=== PATIENT | male | born 1970 | race African-American/Black ===

== ENCOUNTER 2018-11-05 15:02 | Inpatient (IN) | payer OTHER ==
[2018-11-05 15:37] VITALS: BMI 26.3
--- NOTE | 2018-11-05 19:31 | HP ---
COWS - Scale Resting Pulse: 0= [place] 80 or Below Sweatin= No chills or Flushing Restless Observation: 1= Difficult to Sit Still Pupil Size: 1= Pupils >than Normal Bone or Joint Aches: 1= Mild Discomfort Runny Nose/ Eye Tearin= Nasal Congestion GI Upset > 30mins: 1= Stomach Cramp Tremor Observation: 2= Slight Tremor Visible Yawning Observation: 0= None Anxiety or Irritability: 2=Irritable/Anxious Goose Flesh Skin: 3=Piloerection COWS Score: 12 CIWA Score Nausea/Vomitin-Mild Nausea/No Vomiting Muscle Tremors: 2 Anxiety: 1-Mildly Anxious Agitation: 1-Slight > Activity Paroxysmal Sweats: 1-Minimal Palms Moist Orientation: 1-Uncertain about Date Tacttile Disturbances: 0-None Auditory Disturbances: 1-Very Mild Visual Disturbances: 2-Mild Sensitivity Headache: 1-Very Mild CIWA-Ar Total Score: 11 - Admission Criteria OASAS Guidelines: Admission for Medically Managed Detox: Requires at least one of the followin. CIWA greater than 12 2. Seizures within the past 24 hours 3. Delirium tremens within the past 24 hours 4. Hallucinations within the past 24 hours 5. Acute intervention needed for co occurring medical disorder 6. Acute intervention needed for co occurring psychiatric disorder 7. Severe withdrawal that cannot be handled at a lower level of care (continued vomiting, continued diarrhea, abnormal vital signs) requiring intravenous medication and/or fluids 8. Patient presents the following: Acute intervention needed for co-occurring med or psych disorder Admission Criteria Met: Admission criteria met Admission ROS [facility] - [facility] Chief Complaint: im tired of using drugs Allergies/Adverse Reactions: Allergies Allergy/AdvReac Type Severity Reaction Status Date / Time diphenhydramine Allergy Mild Unverified 11/05/18 15:29 [From Benadryl] History of Present Illness: heroin use 20 years 1 year abstinence during incarceration denies ho otp denies tx history - Ebola screening Have you traveled outside of the country in the last 21 days: No (N) Have you had contact with anyone from an Ebola affected area: No Do you have a fever: No - Review of Systems Constitutional: Changes in sleep EENT: reports: Nose Congestion Respiratory: reports: No Symptoms reported Cardiac: reports: No Symptoms Reported GI: reports: Abdominal cramping : reports: No Symptoms Reported Musculoskeletal: reports: Muscle Pain Integumentary: reports: No Symptoms Reported Neuro: reports: Tremors Endocrine: reports: No Symptoms Reported Hematology: reports: No Symptoms Reported Psychiatric: reports: Anxious Patient History - Patient Medical History Hx Anemia: No Hx Asthma: No Hx Chronic Obstructive Pulmonary Disease (COPD): No Hx Cancer: No Hx Cardiac Disorders: No Hx Congestive Heart Failure: No Hx Hypertension: No Hx Hypercholesterolemia: No Hx Pacemaker: No HX Cerebrovascular Accident: No Hx Seizures: No Hx Dementia: No Hx Diabetes: No Hx Gastrointestinal Disorders: No Hx Liver Disease: No Hx Genitourinary Disorders: No Hx Sexually Transmitted Disorders: No Hx Renal Disease (ESRD): No Hx Human Immunodeficiency Virus (HIV): No (NEGATIVE IN OCTOBER 2011) Hx Hepatitis C: No Hx Depression: Yes (on xanax ) Hx Suicide Attempt: No Hx Bipolar Disorder: No Hx Schizophrenia: No - Patient Surgical History Past Surgical History: No Hx Neurologic Surgery: No Hx Cataract Extraction: No Hx Cardiac Surgery: No Hx Lung Surgery: No Hx Breast Surgery: No Hx Breast Biopsy: No Hx Abdominal Surgery: No Hx Appendectomy: No Hx Cholecystectomy: No Hx Genitourinary Surgery: No Hx Section: No Hx Orthopedic Surgery: No Anesthesia Reaction: No - PPD History Previous Implant?: Yes Documented Results: Negative w/o proof Date: 12/10/11 - Smoking Cessation Smoking history: Current every day smoker Have you smoked in the past 12 months: Yes Aproximately how many cigarettes per day: 12 Hx Chewing Tobacco Use: No Initiated information on smoking cessation: Yes 'Breaking Loose' booklet given: 11/05/18 - Substances abused Heroin Substance route: Inhalation Frequency: Daily Amount used: 8bags/day Date of last use: 11/05/18 Family Disease History - Family Disease History Family History: Denies Admission Physical Exam BHS - Vital Signs Vital Signs: Vital Signs - 24 hr 11/05/18 15:32 Temperature 97.5 F L Pulse Rate 64 Respiratory 14 Rate Blood Pressure 117/80 - Physical General Appearance: Yes: Irritable HEENTM: Yes: EOMI, Normocephalic Respiratory: Yes: Lungs Clear Neck: Yes: No masses,lesions,Nodules Breast: Yes: Breast Exam Deferred Cardiology: Yes: Regular Rhythm, Regular Rate, S1, S2 Abdominal: Yes: Normal Bowel Sounds Genitourinary: Yes: Within Normal Limits Back: Yes: Within Normal Limits, Normal Inspection Musculoskeletal: Yes: Within Normal Limits, full range of Motion Extremities: Yes: Within Normal Limits, Normal Capillary Refill Neurological: Yes: surgery scheduler II-XII NML intact, Motor Strength 5/5, Normal Mood/Affect Integumentary: Yes: Within Normal Limits - Diagnostic (1) Opiate dependence Current Visit: Yes Status: Acute (2) Opiate withdrawal Current Visit: Yes Status: Acute (3) Benzodiazepine dependence Current Visit: Yes Status: Chronic Cleared for Admission S - Detox or Rehab [facility] Level of Care: Medically Supervised Breathalyzer - Breathalyzer Breathalyzer: 0 Inpatient Rehab Admission - Rehab Decision to Admit Inpatient rehab admission?: No
[2018-11-05] MEDS ORDERED: ACETAMINOPHEN 325 MG TABLET (FP) PO PRN ×2 (20:02)
[2018-11-05] MEDS ORDERED: METHOCARBAMOL 500 MG TABLET PO PRN (20:02)
[2018-11-05] MEDS ORDERED: IBUPROFEN 400 MG TABLET (FP) PO PRN (20:02)
[2018-11-05] MEDS ORDERED: NICOTINE POLACRILEX 2 MG GUM BUC PRN (20:02)
[2018-11-05] MEDS ORDERED: MAG HYDROX/AL HYDROX/SIMETH 30 ML UNIT-DOSE CUP PO PRN (20:02)
[2018-11-05] MEDS ORDERED: MENTHOL/PHENOL 1 EACH UD MM PRN (20:02)
[2018-11-05] MEDS ORDERED: MAGNESIUM CITRATE 300 ML BOTTLE PO PRN (20:02)
[2018-11-05] MEDS ORDERED: MELATONIN 5 MG TABLETS PO PRN (20:02)
[2018-11-05] MEDS ORDERED: MAGNESIUM HYDROX 2400MG/30ML ORAL SUSPENSION 30 ML CUP PO PRN (20:02)
[2018-11-05] MEDS ORDERED: BISMUTH SUBSALICYLATE 524 MG/30 ML UD PO PRN (20:02)
[2018-11-05] MEDS: NICOTINE 14 MG/24 HOURS TOPICAL PATCH TD SCH (20:58)
[2018-11-05] MEDS ORDERED: diazePAM 5 MG TABLET PO PRN (22:43)
[2018-11-05] MEDS ORDERED: NALOXONE HCL 0.4 MG/ML VIAL IM PRN (22:43)
[2018-11-05] MEDS ORDERED: METHADONE HCL 10 MG TABLET (FOR DETOX USE ONLY) PO ONE (22:43)
[2018-11-05] MEDS ORDERED: cloNIDine HCL 0.1 MG TABLET PO PRN (22:43)
[2018-11-05] MEDS: THIAMINE HCL 100 MG TABLET (FP) PO SCH (22:56)
[2018-11-05] MEDS: diazePAM 5 MG TABLET PO SCH (22:56)
[2018-11-06] MEDS: diazePAM 5 MG TABLET PO SCH ×3 (06:23→22:08)
[2018-11-06 09:43] LABS: HEMATOCRIT 32.9 % (35.4-49); HEMOGLOBIN 11.2 GM/dL (11.7-16.9); MCH 31.5 pg (25.7-33.7); MCHC 34.1 g/dl (32.0-35.9); MEAN CELL VOLUME 92.4 fl (80-96); MEAN PLT VOLUME 8.8 fl (7.5-11.1); PLATELET COUNT 329 K/MM3 (134-434); RBC 3.56 M/mm3 (4.00-5.60); RDW 14.4 % (11.9-15.9); WHITE BLOOD COUNT 6.5 K/mm3 (4.0-10.0)
[2018-11-06 09:59] LABS: ALBUMIN 2.9 g/dl (3.4-5.0); BILIRUBIN,TOTAL 0.2 mg/dL (0.2-1); BLOOD UREA NITROGEN 10.4 mg/dL (7-18); CALCIUM 8.2 mg/dL (8.5-10.1); POTASSIUM 4.2 mmol/L (3.5-5.1); TOT PROT 5.6 g/dl (6.4-8.2)
[2018-11-06] MEDS ORDERED: METHADONE HCL 5 MG TABLET (FOR DETOX USE ONLY) PO ONE (10:00)
[2018-11-06] MEDS: PRENATAL VITAMINS W/ FOLIC ACID TABLET (FP) PO SCH (10:34)
[2018-11-06] MEDS: NICOTINE 14 MG/24 HOURS TOPICAL PATCH TD SCH (10:35)
--- NOTE | 2018-11-06 12:56 | PN ---
[facility] CIWA - CIWA Score Nausea/Vomitin-Mild Nausea/No Vomiting Muscle Tremors: 3 Anxiety: 2 Agitation: 2 Paroxysmal Sweats: 2 Orientation: 0-Oriented Tacttile Disturbances: 0-None Auditory Disturbances: 0-None Visual Disturbances: 0-None Headache: 0-None Present CIWA-Ar Total Score: 10 S COWS - Scale Resting Pulse: 0= [place] 80 or Below Sweatin= Chills/Flushing Restless Observation: 0= Sits Still Pupil Size: 0= Normal to Room Light Bone or Joint Aches: 0= None Runny Nose/ Eye Tearin= None GI Upset > 30mins: 2= Nausea/Diarrhea Tremor Observation of Outstretched Hands: 2= Slight Tremor Visible Yawning Observation: 0= None Anxiety or Irritability: 2=Irritable/Anxious Goose Flesh Skin: 3=Piloerection COWS Score: 10 [facility] Progress Note (SOAP) Subjective: 48 years old male admitted on 11/05/18 for alcohol and opiate withdrawal sx management doing well with valium and methadone detox regimen less tremor mild body aches sleep better at night Objective: 11/06/18 13:00 Vital Signs Temperature 96.9 F L 11/06/18 09:31 Pulse Rate 62 11/06/18 09:31 Respiratory Rate 17 11/06/18 09:31 Blood Pressure 110/78 11/06/18 09:31 O2 Sat by Pulse Oximetry (%) Laboratory Last Values WBC 6.5 K/mm3 (4.0-10.0) 11/06/18 07:00 RBC 3.56 M/mm3 (4.00-5.60) L 11/06/18 07:00 Hgb 11.2 GM/dL (11.7-16.9) L 11/06/18 07:00 Hct 32.9 % (35.4-49) L 11/06/18 07:00 MCV 92.4 fl (80-96) 11/06/18 07:00 MCH 31.5 pg (25.7-33.7) 11/06/18 07:00 MCHC 34.1 g/dl (32.0-35.9) 11/06/18 07:00 RDW 14.4 % (11.9-15.9) 11/06/18 07:00 Plt Count 329 K/MM3 (134-434) D 11/06/18 07:00 MPV 8.8 fl (7.5-11.1) 11/06/18 07:00 Sodium 145 mmol/L (136-145) 11/06/18 07:00 Potassium 4.2 mmol/L (3.5-5.1) 11/06/18 07:00 Chloride 110 mmol/L (98-107) H 11/06/18 07:00 Carbon Dioxide 31 mmol/L (21-32) 11/06/18 07:00 Anion Gap 4 MMOL/L (8-16) L 11/06/18 07:00 BUN 10.4 mg/dL (7-18) 11/06/18 07:00 Creatinine 1.0 mg/dL (0.55-1.3) 11/06/18 07:00 Est GFR (CKD-EPI)AfAm 101.26 11/06/18 07:00 Est GFR (CKD-EPI)NonAf 87.37 11/06/18 07:00 Random Glucose 107 mg/dL (74-106) H 11/06/18 07:00 Calcium 8.2 mg/dL (8.5-10.1) L 11/06/18 07:00 Total Bilirubin 0.2 mg/dL (0.2-1) 11/06/18 07:00 AST 18 U/L (15-37) 11/06/18 07:00 ALT 15 U/L (13-61) 11/06/18 07:00 Alkaline Phosphatase 79 U/L (45-117) 11/06/18 07:00 Total Protein 5.6 g/dl (6.4-8.2) L 11/06/18 07:00 Albumin 2.9 g/dl (3.4-5.0) L 11/06/18 07:00 RPR Titer Nonreactive (NONREACTIVE) 11/06/18 07:00 lab noted Assessment: 11/06/18 13:00 alcohol and opiate withdrawal sx alert oriented x [address] steady gait encourage medication assisted treatment program Plan: continue valium and methadone detox regimen
[2018-11-06] MEDS: THIAMINE HCL 100 MG TABLET (FP) PO SCH (22:08)
[2018-11-07] MEDS ORDERED: diazePAM 5 MG TABLET PO SCH (06:00)
[2018-11-07] MEDS ORDERED: METHADONE HCL 10 MG TABLET (FOR DETOX USE ONLY) PO ONE (10:00)
[2018-11-07] MEDS: PRENATAL VITAMINS W/ FOLIC ACID TABLET (FP) PO SCH (10:58)
[2018-11-07] MEDS: NICOTINE 14 MG/24 HOURS TOPICAL PATCH TD SCH (10:58)
--- NOTE | 2018-11-07 14:29 | PN ---
[facility] CIWA - CIWA Score Nausea/Vomitin-No Nausea/No Vomiting Muscle Tremors: 2 Anxiety: 2 Agitation: 1-Slight > Activity Paroxysmal Sweats: No Perspiration Orientation: 0-Oriented Tacttile Disturbances: 0-None Auditory Disturbances: 0-None Visual Disturbances: 0-None Headache: 0-None Present CIWA-Ar Total Score: 5 [facility] COWS - Scale Resting Pulse: 0= [place] 80 or Below Sweatin= Chills/Flushing Restless Observation: 0= Sits Still Pupil Size: 0= Normal to Room Light Bone or Joint Aches: 1= Mild Discomfort Runny Nose/ Eye Tearin= Nasal Congestion GI Upset > 30mins: 0= None Tremor Observation of Outstretched Hands: 1= Tremor [place], Not Seen Yawning Observation: 0= None Anxiety or Irritability: 1=Feels Anxious/Irritable Goose Flesh Skin: 0=Smooth Skin COWS Score: 5 S Progress Note (SOAP) Subjective: doing well with valium and methadone detox regimen less tremor mild body aches sleep better at night girlfriend "up stair" is going to be discharged tomorrow prefers revelation Objective: 11/07/18 14:32 Vital Signs Temperature 98.5 F 11/07/18 13:22 Pulse Rate 50 L 11/07/18 13:22 Respiratory Rate 18 11/07/18 13:22 Blood Pressure 129/83 11/07/18 13:22 O2 Sat by Pulse Oximetry (%) Laboratory Last Values WBC 6.5 K/mm3 (4.0-10.0) 11/06/18 07:00 RBC 3.56 M/mm3 (4.00-5.60) L 11/06/18 07:00 Hgb 11.2 GM/dL (11.7-16.9) L 11/06/18 07:00 Hct 32.9 % (35.4-49) L 11/06/18 07:00 MCV 92.4 fl (80-96) 11/06/18 07:00 MCH 31.5 pg (25.7-33.7) 11/06/18 07:00 MCHC 34.1 g/dl (32.0-35.9) 11/06/18 07:00 RDW 14.4 % (11.9-15.9) 11/06/18 07:00 Plt Count 329 K/MM3 (134-434) D 11/06/18 07:00 MPV 8.8 fl (7.5-11.1) 11/06/18 07:00 Sodium 145 mmol/L (136-145) 11/06/18 07:00 Potassium 4.2 mmol/L (3.5-5.1) 11/06/18 07:00 Chloride 110 mmol/L (98-107) H 11/06/18 07:00 Carbon Dioxide 31 mmol/L (21-32) 11/06/18 07:00 Anion Gap 4 MMOL/L (8-16) L 11/06/18 07:00 BUN 10.4 mg/dL (7-18) 11/06/18 07:00 Creatinine 1.0 mg/dL (0.55-1.3) 11/06/18 07:00 Est GFR (CKD-EPI)AfAm 101.26 11/06/18 07:00 Est GFR (CKD-EPI)NonAf 87.37 11/06/18 07:00 Random Glucose 107 mg/dL (74-106) H 11/06/18 07:00 Calcium 8.2 mg/dL (8.5-10.1) L 11/06/18 07:00 Total Bilirubin 0.2 mg/dL (0.2-1) 11/06/18 07:00 AST 18 U/L (15-37) 11/06/18 07:00 ALT 15 U/L (13-61) 11/06/18 07:00 Alkaline Phosphatase 79 U/L (45-117) 11/06/18 07:00 Total Protein 5.6 g/dl (6.4-8.2) L 11/06/18 07:00 Albumin 2.9 g/dl (3.4-5.0) L 11/06/18 07:00 RPR Titer Nonreactive (NONREACTIVE) 11/06/18 07:00 lab noted Assessment: 11/07/18 14:32 alcohol and opiate withdrawal sx alert oriented x 3 speech clearly steady gait tolerate food and fluid well Plan: continue valium and methadone detox
[2018-11-07 18:39] VITALS: BP 122/80; PULSE 53; TEMP 99
[2018-11-08] MEDS ORDERED: METHADONE HCL 5 MG TABLET (FOR DETOX USE ONLY) PO ONE (06:00)
[2018-11-08] MEDS ORDERED: diazePAM 5 MG TABLET PO ONE (06:00)
--- NOTE | 2018-11-08 10:56 | EKG ---
Test Reason : Blood Pressure : / mmHG Vent. Rate : 065 BPM Atrial Rate : 065 BPM P-R Int : 166 ms QRS Dur : 088 ms QT Int : 412 ms P-R-T Axes : 053 032 025 degrees QTc Int : 428 ms NORMAL SINUS RHYTHM NORMAL ECG NO PREVIOUS ECGS AVAILABLE Confirmed by SHERLYN GREER, SOTO ([id number]) on 11/08/2018 10:56:13 AM Referred By: DR TAVAREZ Confirmed By:SOTO PLATA MD
== END 2018-11-07 18:02 | disposition left against medical advice (07) | DRG 770 ==
LOC: YASAS 15:02 → Y6N 17:56 → Y3N 18:25
PROVIDERS: ADMIT Surgery; ATTEND Surgery
PROC: HZ2ZZZZ Detoxification Services for Substance Abuse Treatment (ICD-10-PCS; principal; 2018-11-05)
DX: F11.23 Opioid dependence with withdrawal (principal); F10.230 Alcohol dependence with withdrawal, uncomplicated; F13.20 Sedative, hypnotic or anxiolytic dependence, uncomplicated; F17.210 Nicotine dependence, cigarettes, uncomplicated; Z88.8 Allergy status to other drugs, medicaments and biological substances; Z59.0 Homelessness
CPT/HCPCS: 36415; 80053; 85027; 86480; 86593; 93005; 93010

== ENCOUNTER 2021-08-28 14:24 | Inpatient (IN) | payer OTHER ==
[2021-08-28 15:42] VITALS: BMI 25.7
[2021-08-28] MEDS ORDERED: ONDANSETRON *ODT* 4 MG TABLET SL PRN (18:35)
[2021-08-28] MEDS ORDERED: IBUPROFEN 400 MG TABLET (FP) PO PRN (18:35)
[2021-08-28] MEDS ORDERED: NICOTINE 10 MG CARTRIDGE (INHALER) IH PRN (18:35)
[2021-08-28] MEDS ORDERED: NALOXONE HCL 0.4 MG/ML VIAL IM PRN (18:35)
[2021-08-28] MEDS ORDERED: METHOCARBAMOL 500 MG TABLET PO PRN (18:35)
[2021-08-28] MEDS ORDERED: BENZOCAINE/MENTHOL (CHLORASEPTIC ) LOZENGE MM PRN (18:35)
[2021-08-28] MEDS ORDERED: BISMUTH SUBSALICYLATE 524 MG/30 ML PO PRN (18:35)
[2021-08-28] MEDS ORDERED: IBUPROFEN 600 MG TABLET (FP) PO PRN (18:35)
[2021-08-28] MEDS ORDERED: MAGNESIUM CITRATE 300 ML BOTTLE PO PRN (18:35)
[2021-08-28] MEDS ORDERED: DICYCLOMINE HCL 10 MG CAPSULE PO PRN (18:35)
[2021-08-28] MEDS ORDERED: ACETAMINOPHEN 325 MG TABLET (FP) PO PRN ×2 (18:35)
[2021-08-28] MEDS ORDERED: MAG HYDROX/AL HYDROX/SIMETH 30 ML UNIT-DOSE CUP PO PRN (18:35)
[2021-08-28] MEDS ORDERED: MAGNESIUM HYDROX 2400MG/30ML ORAL SUSPENSION 30 ML CUP PO PRN (18:35)
[2021-08-28] MEDS ORDERED: LOPERAMIDE HCL 2 MG CAPSULE PO PRN (18:35)
[2021-08-28] MEDS ORDERED: methaDONE HCL 10 MG TABLET (FOR DETOX USE ONLY) PO ONE (18:35)
[2021-08-28] MEDS ORDERED: cloNIDine HCL 0.1 MG TABLET PO PRN (18:35)
[2021-08-28] MEDS: NICOTINE 7 MG/24 HOURS TOPICAL PATCH TD SCH (21:49)
[2021-08-28] MEDS ORDERED: MELATONIN 5 MG TABLETS PO SCH (22:00)
[2021-08-28] MEDS ORDERED: methaDONE HCL 10 MG TABLET (FOR DETOX USE ONLY) ONE (22:06)
[2021-08-28] MEDS: PRENATAL VITAMINS W/ FOLIC ACID TABLET (FP) PO SCH (22:08)
[2021-08-28] MEDS: hydrOXYzine PAMOATE 25 MG CAPSULE (FP) PO SCH (22:10)
[2021-08-28] MEDS: THIAMINE HCL 100 MG TABLET (FP) PO SCH (22:11)
[2021-08-29] MEDS: hydrOXYzine PAMOATE 25 MG CAPSULE (FP) PO SCH ×5 (07:11→22:19)
[2021-08-29] MEDS ORDERED: methaDONE HCL 10 MG TABLET (FOR DETOX USE ONLY) ONE (09:41)
[2021-08-29 10:23] LABS: HEMOGLOBIN 12.1 GM/dL (11.7-16.9); MCH 30.6 pg (25.7-33.7); MCHC 33.7 g/dl (32.0-35.9); MEAN CELL VOLUME 90.7 fl (80-96); MEAN PLT VOLUME 8.3 fl (7.5-11.1); PLATELET COUNT 272 10^3/uL (134-434); RBC 3.97 M/mm3 (4.00-5.60); RDW 13.4 % (11.9-15.9); WHITE BLOOD COUNT 5.1 K/mm3 (4.0-10.0)
[2021-08-29] MEDS: PRENATAL VITAMINS W/ FOLIC ACID TABLET (FP) PO SCH (10:25)
[2021-08-29 10:26] LABS: CALCIUM 8.8 mg/dL (8.5-10.1)
[2021-08-29] MEDS: NICOTINE 7 MG/24 HOURS TOPICAL PATCH TD SCH (10:28)
[2021-08-29 10:31] LABS: CREATININE 0.9 mg/dL (0.55-1.3)
[2021-08-29 10:32] LABS: BILIRUBIN,TOTAL 0.5 mg/dL (0.2-1)
[2021-08-29 12:26] LABS: HIV INTERPRETATION NEGATIVE (NEGATIVE)
[2021-08-29] MEDS ORDERED: SUVOREXANT 10 MG TABLET PO PRN (22:00)
[2021-08-29] MEDS: THIAMINE HCL 100 MG TABLET (FP) PO SCH (22:18)
[2021-08-30] MEDS: hydrOXYzine PAMOATE 25 MG CAPSULE (FP) PO SCH ×5 (06:10→23:17)
[2021-08-30] MEDS ORDERED: methaDONE HCL 10 MG TABLET (FOR DETOX USE ONLY) PO ONE (10:00)
[2021-08-30] MEDS: PRENATAL VITAMINS W/ FOLIC ACID TABLET (FP) PO SCH (10:23)
[2021-08-30] MEDS: NICOTINE 7 MG/24 HOURS TOPICAL PATCH TD SCH (10:23)
[2021-08-30] MEDS: THIAMINE HCL 100 MG TABLET (FP) PO SCH (23:17)
[2021-08-31] MEDS: hydrOXYzine PAMOATE 25 MG CAPSULE (FP) PO SCH ×5 (06:03→22:22)
[2021-08-31] MEDS ORDERED: methaDONE HCL 10 MG TABLET (FOR DETOX USE ONLY) ONE (09:26)
[2021-08-31] MEDS: PRENATAL VITAMINS W/ FOLIC ACID TABLET (FP) PO SCH (10:30)
[2021-08-31] MEDS: NICOTINE 7 MG/24 HOURS TOPICAL PATCH TD SCH (10:31)
[2021-08-31] MEDS: THIAMINE HCL 100 MG TABLET (FP) PO SCH (22:22)
[2021-09-01] MEDS: hydrOXYzine PAMOATE 25 MG CAPSULE (FP) PO SCH ×2 (06:00→10:19)
[2021-09-01 08:58] VITALS: BP 125/76; PULSE 49; TEMP 97.8
[2021-09-01] MEDS ORDERED: methaDONE HCL 10 MG TABLET (FOR DETOX USE ONLY) PO ONE (10:00)
[2021-09-01] MEDS: NICOTINE 7 MG/24 HOURS TOPICAL PATCH TD SCH (10:19)
[2021-09-01] MEDS: PRENATAL VITAMINS W/ FOLIC ACID TABLET (FP) PO SCH (10:19)
== END 2021-09-01 11:20 | disposition home or self-care (01) | DRG 773 ==
LOC: YASAS 14:24 → Y6N 08-29 01:36
PROVIDERS: ADMIT Allergy & Immunology; ATTEND Surgery
PROC: HZ2ZZZZ Detoxification Services for Substance Abuse Treatment (ICD-10-PCS; principal; 2021-08-29)
DX: F11.23 Opioid dependence with withdrawal (principal); F14.20 Cocaine dependence, uncomplicated; F17.210 Nicotine dependence, cigarettes, uncomplicated; F41.9 Anxiety disorder, unspecified; F19.282 Other psychoactive substance dependence with psychoactive substance-induced sleep disorder; K74.60 Unspecified cirrhosis of liver; Z28.310 Unvaccinated for COVID-19; Z88.8 Allergy status to other drugs, medicaments and biological substances; Z56.0 Unemployment, unspecified; Z59.00 Homelessness unspecified
CPT/HCPCS: 36415; 80053; 85027; 86780; 87389; C9803-CS; U0003; U0005